=== PATIENT | male | born 1990 | race Caucasian/White ===

== ENCOUNTER → 2020-08-23 | Outpatient (CLI) | payer OTHER ==
[~2020-08-23] MED LIST: GADOTERATE 10 MMOL/20ML SYR ONE
== END | disposition home or self-care (01) ==
LOC: CFH 07:32 → EDSTATUS 07:45
PROVIDERS: ATTEND Family Medicine
DX: G95.89 Other specified diseases of spinal cord (principal); D36.10 Benign neoplasm of peripheral nerves and autonomic nervous system, unspecified; Z98.1 Arthrodesis status
CPT/HCPCS: 72156; A9575